=== PATIENT | female | born 1950 | race Two or more races ===

== ENCOUNTER 2024-06-15 12:56 | Emergency (ER) | payer OTHER ==
[~2024-06-15] VITALS: Ht 167.6 cm; Wt 93.1 kg
--- NOTE | 2024-06-15 13:06 | ED.PDOC ---
HPI Comments 74 year old female ELLE presents to the ED with chief complaint of lightheadedness and high blood pressure. Patient reports that she was at [facility] for their blood pressure fair when she was noted to have very high blood pressure. EMS relays that when they arrived on scene, patient's BP was noted to be 202/98. Patient states she has been experiencing some associated lightheadedness, however, she took her Losartan and Hydrochlorothiazide this morning as prescribed. Patient denies any dizziness, headache, chest pain, SOB, blurred vision, or N/V at this time. 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, Medications, Allergies Allergies: Coded Allergies: Acetaminophen (Verified Allergy, Unknown, 06/15/24) Hydrocodone (Verified Allergy, Unknown, 06/15/24) Tramadol (Verified Allergy, Unknown, 06/15/24) Information Source: Patient, Emergency Med Personnel Mode of Arrival: EMS Severity: Moderate Timing: Hours Duration: Since onset Prehospital treatment: None Onset: At Rest Cardiac Risk Factors: Family History, Hyperlipidemia, HTN History of: None Past Medical History PAST MEDICAL HISTORY: CKF (Stage 3), High Lipids, HTN Surgical History (Other): Spinal surgery, bilateral knee replacement [employer]LL[employer] HELPER History: Denies all [employer] HELPER Hx Family History Family History: Family hx of heart anila Social History Smoker: Non-Smoker Alcohol: Rarely Drugs: Denies Drug Use Lives In: Home Constitutional: denies: chills, diaphoresis, fatigue, fever, malaise, sweats, weakness, others EENTM: denies: blurred vision, double vision, ear bleeding, ear discharge, ear drainage, ear pain, ear ringing, eye pain, eye redness, hearing loss, mouth pain, mouth swelling, nasal discharge, nose bleeding, nose congestion, nose pa in, photophobia, tearing, throat pain, throat swelling, voice changes, others Respiratory: denies: cough, hemoptysis, orthopnea, SOB at rest, shortness of breath, SOB with excertion, stridor, wheezing, others Cardiovascular: reports: lightheadedness; denies: chest pain, dizzy spells, diaphoresis, Dyspnea on exertion, edema, irregular heart beat, left arm pain, palpitations, PND, syncope, others Gastrointestinal: denies: abdomen distended, abdominal pain, blood streaked bowels, constipated, diarrhea, dysphagia, difficulty swallowing, hematemesis, m matt, nausea, poor appetite, poor fluid intake, rectal bleeding, rectal pain, vomiting, others Genitourinary: denies: abnormal vagina bleeding, burning, dyspareunia, dysuria, flank pain, frequency, hematuria, incontinence, pain, , vagina discharge, urgency, others Neurological: denies: dizziness, fainting, headache, left sided numbness, left sided weakness, numbness, paresthesia, pre-existing deficit, right sided numbness, right sided weakness, seizure, speech problems, tingling, tremors, weakness, others Musculoskeletal: denies: back pain, gout, joint pain, joint swelling, muscle pain, muscle stiffness, neck pain, others Integumetry: denies: bruises, change in color, change in hair/nails, dryness, laceration, lesions, lumps, rash, wounds, others Allergic/Immunocompromised: denies: Difficulty Healing, Frequent Infections, Hives, Itching, others Hematologic/Lymphatic: denies: anemia, blood clots, easy bleeding, easy bruising, swollen glands, others Endocrine: denies: excessive hunger, excessive sweating, excessive thirst, excessive urination, flushing, intolerance to cold, intolerance to heat, unexpla ined weight gain, unexplained weight loss, others Psychiatric: denies: anxiety, bipolar disorder, depression, hopeless, panic disorder, schizophrenia, sleepless, suicidal, others All Other Systems: Reviewed and Negative Physical Exam General Appearance: Moderate Distress, Obese HEENT: Normal ENT Inspection, Pharynx Normal, TMs Normal Neck: Full Range of Motion, Non-Tender, Normal, Normal Inspection Respiratory: Chest Non-Tender, Lungs Clear, No Accessory Muscle Use, No Respiratory Distress, Normal Breath Sounds Cardiovascular: Bradycardia, No Edema, No JVD, No Murmur, No Gallop Breast Exam: Deferred Gastrointestinal: No Organomegaly, Non Tender, No Pulsatile Mass, Normal Bowel Sounds, Soft Genitalia: Deferred Pelvic: Deferred Rectal: Deferred Extremities: No calf tenderness, Normal capillary refill, No pedal edema Musculoskeletal : Apperance: Normal Neurologic: Alert, validation architect II-XII nml as Tested, No Motor Deficits, Normal Affect, Normal Mood, No Sensory Deficits Cerebellar Function: Normal Reflexes: Normal Skin: Dry, Normal Color, Warm Lymphatic: No Adenopathy EKG EKG : Pulse Rate (adult): 63 [place]: Normal Cardiac Rhythm: NSR Block: None Hypertrophy: LAE ST: Normal Was a procedure done? Was a procedure done?: No CP Differential Dx Differential Diagnosis: Angina, IA, Pulmonary Embolus Differential Diagnosis: CHF Differential Diagnosis: Pericarditis X-Ray, Labs, Meds, VS Vital Signs Date Time Temp Pulse Resp B/P (MAP) Pulse Ox O2 Delivery O2 Flow Rate FiO2 06/15/24 18:34 98.0 81 14 136/48 (77) 96 98.0 06/15/24 16:26 70 18 137/49 (78) 98 06/15/24 14:15 56 17 143/47 (79) 97 06/15/24 14:15 143/47 06/15/24 13:18 201/63 06/15/24 13:10 97.8 63 16 201/63 (109) 98 97.8 06/15/24 13:10 63 16 98 Room Air* 0 21 06/15/24 13:10 98.1 59 18 202/95 (130) 100 98.1 06/15/24 13:06 63 06/15/24 13:04 63 Lab Test 06/15/24 13:28 06/15/24 00:00 Range/Units White Blood Count 6.5 4.4-10.8 10^3/uL Red Blood Count 4.80 4.0-5.20 10^6/uL Hemoglobin 14.4 12.2-16.2 g/dL Hematocrit 44.3 36.0-46.0 % Mean Corpuscular Volume 92.3 80.0-100.0 fL Mean Corpuscular Hemoglobin 30.0 28.0-32.0 pg Mean Corpuscular Hemoglobin Concent 32.5 32.0-36.0 g/dL Red Cell Distribution Width 15.3 H 11.8-14.3 % Platelet Count 225 140-450 10^3/uL Mean Platelet Volume 8.2 6.9-10.8 fL Neutrophils (%) (Auto) 48.5 37.0-80.0 % Lymphocytes (%) (Auto) 42.8 10.0-50.0 % Monocytes (%) (Auto) 6.8 0.0-12.0 % Eosinophils (%) (Auto) 1.2 0.0-7.0 % Basophils (%) (Auto) 0.7 0.0-2.0 % Neutrophils # (Auto) 3.1 1.6-8.6 10 ^3/uL Lymphocytes # (Auto) 2.8 0.4-5.4 10 ^3/uL Monocytes # (Auto) 0.4 0-1.3 10 ^3/uL Eosinophils # (Auto) 0.1 0-0.8 10 ^3/uL Basophils # (Auto) 0 0-0.2 10 ^3/uL Nucleated Red Blood Cells 0.4 % Sodium Level 141 136-145 mmol/L Potassium Level 4.0 3.5-5.1 mmol/L Chloride Level 105 98-107 mmol/L Carbon Dioxide Level 29 20-31 mmol/L Anion Gap 7 5-15 Blood Urea Nitrogen 23 9-23 mg/dL Creatinine 1.07 H 0.550-1.02 mg/dL Glomerular Filtration Rate Calc 55 >90 mL/min BUN/Creatinine Ratio 21.5 H 10.0-20.0 Serum Glucose 97 74-106 mg/dL Calcium Level 10.2 8.7-10.4 mg/dL Troponin I High Sensitivity 10 </=34 ng/L Urine Color Light-yellow Yellow Urine Clarity Hazy H Clear Urine pH 6.0 5.0-9.0 Urine Specific [place] 1.005 1.001-1.035 Urine Protein Negative Negative Urine Ketones Negative Negative Urine Blood Negative Negative /uL Urine Nitrite Negative Negative Urine Bilirubin Negative Negative Urine Urobilinogen Normal Negative mg/dL Urine Leukocyte Esterase 2+ Negative /uL Urine RBC <1 0 - 4 /hpf Urine Microscopic WBC 8 H 0-5 /HPF Urine Squamous Epithelial Cells Few <5 /hpf Urine Bacteria Few H None Seen /hpf Urine Glucose Normal Normal mg/dL Current Medications Medications (Trade) Dose Ordered Sig/Sandy Route Start Time Stop Time Status Last Admin Clonidine HCl (Catapres Tablet) 0.2 mg ONCE ONCE PO 06/15/24 13:15 06/15/24 13:16 DC 06/15/24 13:18 IV Hep-Lock was established. The patient's CBC is within normal limits The chemistry panel is within normal limits The urine test is 2+ leukocytes The patient was initially given clonidine 0.2 mg by mouth At this time the patient is still somewhat bradycardic and we did call [facility]. They did state that they are going to transfer the patient to their facility. We discussed the findings with the patient and they are in agreement with the management. The authorization number was given. The authorization #[id number] Images Reviewed?: Images reviewed and evaluated by me Time of 1ST Reevaluation: 18:44 Reevaluation 1ST: Unchanged Patient Education/Counseling: Diagnosis, Treatment, Prognosis Family Education/Counseling: No Family Present Additional Information Previous medical encounters reviewed: None The following tests were ordered, and results were reviewed by me: CBC, BMP, EKG, Troponin Additional Information was gathered from interviewing the following independent historians: EMS I reviewed and agreed with the following test results read by other providers: I discussed treatment and results with medical personnel and: Patient Comprehensive systems review obtained and negative except for what is stated in the HPI. Departure 1 Departure Time of Disposition: 15:38 Impression: Primary Impression: Accelerated hypertension Additional Impression: Bradycardia Disposition: 51 HOSPICE/MEDICAL FACILITY Condition: Fair Critical Care Note Critical Care Time?: Yes (45 min-critical care time only) Stability Stability form required: Yes Stable for transfer: Intended for transfer (Health plan request transfer), To designated facility Heart Score Heart Score: Heart Score Response (Comments) Value History Moderate Suspicious 1 EKG Normal 0 Age >65 2 Risk Factors >3 or Hx ASHD 2 Troponin Normal limit 0 Total 5 I personally scribed for LATA LÓPEZ MD ([email or web address]) on 06/15/24 at 13:06. Electronically submitted by Oracio Burgos ([email or web address]). I personally scribed for LATA LÓPEZ MD ([email or web address]) on 06/15/24 at 13:10. Electronically submitted by Oracio Burgos ([email or web address]). LATA LÓPEZ MD Jun 15, 2024 13:06
[2024-06-15 13:10] VITALS: PULSE 63; RESP 16; O2SAT 98
[2024-06-15] MEDS: cloNIDine HCL 0.1 MG TAB PO ONE (13:18)
[2024-06-15 13:44] LABS: Urine Bacteria FEW /hpf (None Seen); Urine Blood Negative /uL (Negative); Urine Protein, UAD Negative (Negative); Urine Specific Gravity 1.005 (1.001-1.035); Urine Squamous Epithelial Cell FEW /hpf (<5); Urine Urobilinogen Normal (Negative); Urine WBC 8 /HPF (0-5)
[2024-06-15 13:48] LABS: Basophils # (auto) 0 10 ^3/uL (0-0.2); Basophils % (auto) 0.7 % (0.0-2.0); Eosinophils # (auto) 0.1 10 ^3/uL (0-0.8); Eosinophils % (auto) 1.2 % (0.0-7.0); Hematocrit 44.3 % (36.0-46.0); Hemoglobin 14.4 g/dL (12.2-16.2); Lymphocytes # (auto) 2.8 10 ^3/uL (0.4-5.4); Lymphocytes % (auto) 42.8 % (10.0-50.0); Mean Corpuscular Hgb Conc. 32.5 g/dL (32.0-36.0); Mean Corpuscular Volume 92.3 fL (80.0-100.0); Monocytes # (auto) 0.4 10 ^3/uL (0-1.3); Monocytes % (auto) 6.8 % (0.0-12.0); Neutrophils # (auto) 3.1 10 ^3/uL (1.6-8.6); Neutrophils % (auto) 48.5 % (37.0-80.0); Nucleated Red Blood Cells % 0.4 %; Platelet Count (auto) 225 10^3/uL (140-450); Red Cell Distribution Width 15.3 % (11.8-14.3); White Blood Cell 6.5 10^3/uL (4.4-10.8)
[2024-06-15 13:49] LABS: Urine Color Light-Yellow (Yellow)
[2024-06-15 13:50] LABS: Urine Clarity Hazy (Clear)
[2024-06-15 13:56] LABS: Chloride 105 mmol/L (98-107); Sodium 141 mmol/L (136-145)
[2024-06-15 13:57] LABS: Anion Gap 7 (5-15); Calcium 10.2 mg/dL (8.7-10.4); Carbon Dioxide 29 mmol/L (20-31)
[2024-06-15 14:02] LABS: BUN/Creatinine Ratio 21.5 (10.0-20.0); Blood Urea Nitrogen 23 mg/dL (9-23); Glucose 97 mg/dL (74-106)
[2024-06-15 18:42] VITALS: BP 136/48; PULSE 81; RESP 14; TEMP 98; O2SAT 96
--- NOTE | 2024-06-18 12:02 | ECG ---
[facility] Test Date: 2024-06-15 Test Time: 13:04:19 Pat Name: JASON MANCILLA Department: ED Room: Gender: F Director Internal Control: doreen : 1950 Requested By: LATA LÓPEZ Order Number: [id number] Reading MD: Reginald Stapleton Measurements Intervals [place] Rate: 63 P: 57 NH: 202 QRS: 61 QRSD: 89 T: -29 QT: 434 QTc: 445 Interpretive Statements Sinus rhythm Consider left atrial enlargement Anteroseptal infarct, old Nonspecific T abnormalities, lateral leads Artifact in lead(s) V5 and baseline wander in lead(s) V5 Electronically Signed On 06-20-2024 14:01:35 PDT by Reginald Stapleton Please click the below link to view image of tracing.
== END 2024-06-15 19:07 | disposition short-term general hospital (02) ==
LOC: ER 13:07
DX: R00.1 Bradycardia, unspecified (principal); I12.9 Hypertensive chronic kidney disease with stage 1 through stage 4 chronic kidney disease, or unspecified chronic kidney disease; N18.30 Chronic kidney disease, stage 3 unspecified; Z98.890 Other specified postprocedural states; Z88.5 Allergy status to narcotic agent
CPT/HCPCS: 36415; 80048; 81001; 84484; 85025; 93005; 99291